=== PATIENT | female | born 1990 | race American Indian/Alaskan Native ===

== ENCOUNTER 2019-06-13 07:31 | Emergency (ER) | payer BC, OTHER ==
--- NOTE | 2019-06-13 08:02 | EDM.PDOC ---
<Kiera Roy - Last Filed: 06/13/19 09:08> ED HPI GENERAL MEDICAL PROBLEM - General Chief Complaint: General Stated Complaint: FEVER, CANT SLEEP Time Seen by Provider: 06/13/19 07:53 Source of Information: Reports: Patient History Limitations: Reports: No Limitations - History of Present Illness INITIAL COMMENTS - FREE TEXT/NARRATIVE: Patient presents to the ED by private vehicle with concerns of sweating, body aches, and poor sleep. The patient states that her symptoms began approximately 2 days ago. She has not recorded a temp but feels warm. She reports participating in a [employer] over the weekend with a large crowd, she is otherwise unaware of any sick contacts. She also admits to sore throat, mild non -productive cough, sinus tenderness, sinus headaches, and nausea. The patient reports that she is currently on her menstrual period. Her last bowel movement was on Wednesday and it was loose. She denies abdominal pain, vomiting, productive cough, blood in the urine, painful urination, flank tenderness. Onset Date: 06/11/19 Duration: Constant Location: Reports: Face Severity: Moderate Improves with: Reports: None Worsens with: Reports: None Context: Reports: Sick Contact (potential, participated in [employer] over weekend) - Related Data Allergies Allergy/AdvReac Type Severity Reaction Status Date / Time No Known Allergies Allergy Verified 06/13/19 07:38 Home Meds: Home Meds Doxycycline Hyclate 100 mg PO DAILY 06/13/19 [History] ED ROS GENERAL - Review of Systems Review Of Systems: See Below Constitutional: Reports: Night Sweats Respiratory: Reports: Cough. Denies: Shortness of Breath, Wheezing, Sputum Cardiovascular: Denies: Chest Pain Endocrine: Reports: Fatigue GI/Abdominal: Reports: Constipation, Nausea. Denies: Abdominal Pain, Diarrhea, Hematemesis, Vomiting : Denies: Dysuria, Flank Pain, Hematuria Musculoskeletal: Reports: Muscle Pain Skin: Denies: Rash ED EXAM, GENERAL - Physical Exam Exam: See Below General Appearance: Alert, No Apparent Distress Eye Exam: Bilateral Eye: PERRL Ears: Normal External Exam, Normal Canal, Hearing Grossly Normal, Normal TMs Nose: Normal Inspection, Normal Mucosa Throat/Mouth: No Airway Compromise, Inflammation (oropharyngeal erythema without tonsillar exudates) Neck: Lymphadenopathy (L), Lymphadenopathy (R) Respiratory/Chest: No Respiratory Distress, Lungs Clear, Normal Breath Sounds Cardiovascular: Normal Peripheral Pulses, Regular Rate, Rhythm, No Murmur GI/Abdominal: Soft, Non-Tender, No Distention Neurological: Alert, Oriented Skin Exam: Warm, Dry, Intact Course - Vital Signs Last Recorded V/S: Last Vital Signs Temp 98.5 F 06/13/19 07:36 Pulse 78 06/13/19 07:36 Resp 18 06/13/19 07:36 BP 138/88 06/13/19 07:36 Pulse Ox 99 06/13/19 07:36 - Orders/Labs/Meds Orders: Active Orders 24 hr Category Date Time Status CULTURE STREP A CONFIRMATION [] Stat Lab 06/13/19 08:03 Results STREP SCRN A RAPID W CULT CONF [] Stat Lab 06/13/19 08:03 Results Strep screen: negative Rapid influenza: negative Labs: Laboratory Tests 06/13/19 06/13/19 Range/Units 08:10 08:10 WBC 4.9 L (5.0-10.0) 10^3/uL RBC 4.17 L (4.2-5.4) 10^6/uL Hgb 12.9 (12.0-16.0) g/dL Hct 39.0 (37.0-47.0) % MCV 93.5 (80-100) fL MCH 30.9 (27.0-34.0) pg MCHC 33.1 (33.0-35.0) g/dL Plt Count 280 (150-450) 10^3/uL Neut % (Auto) 66.5 (42.2-75.2) % Lymph % (Auto) 22.3 (20.5-50.1) % [place] % (Auto) 6.3 (2-8) % Eos % (Auto) 4.3 H (1.0-3.0) % Baso % (Auto) 0.6 (0.0-1.0) % Sodium 139 (136-145) mmol/L Potassium 4.2 (3.5-5.1) mmol/L Chloride 103 (101-111) mmol/L Carbon Dioxide 24 (21-32) mmol/L Anion Gap 16.2 H (7-13) mEq/L BUN 10 (7-18) mg/dL Creatinine 0.75 (0.55-1.02) mg/dL Est Cr Clr Drug Dosing 114.62 mL/min Estimated GFR (MDRD) > 60 BUN/Creatinine Ratio 13.3 (No establ ref range) Glucose 105 H (74-99) mg/dL Calcium 7.7 L (8.5-10.1) mg/dL Total Bilirubin 0.6 (0.2-1.0) mg/dL AST 13 L (15-37) U/L ALT 17 (14-59) U/L Alkaline Phosphatase 92 (46-116) U/L Total Protein 6.9 (6.4-8.2) g/dL Albumin 3.5 (3.4-5.0) g/dL Globulin 3.4 Albumin/Globulin Ratio 1.0 Departure - Departure Time of Disposition: 09:08 Disposition: Home, Self-Care 01 Condition: Good Clinical Impression: Upper respiratory infection Qualifiers: URI type: unspecified viral URI Qualified Code(s): J06.9 - Acute upper respiratory infection, unspecified - Discharge Information *PRESCRIPTION DRUG MONITORING PROGRAM REVIEWED*: Not Applicable *COPY OF PRESCRIPTION DRUG MONITORING REPORT IN PATIENT CARL: Not Applicable Instructions: Viral Respiratory Infection, [id number] Forms: ED Department Discharge Additional Instructions: Benadryl for sleep as needed Tylenol for fever as needed Throat lozenges for comfort as needed Sepsis Event Note - Evaluation Sepsis Screening Result: No Definite Risk - Focused Exam Vital Signs: Vital Signs Temp Pulse Resp BP Pulse Ox 06/13/19 07:36 98.5 F 78 18 138/88 99 Date Exam was Performed: 06/13/19 Time Exam was Performed: 09:08 <Charlie Aviles - Last Filed: 06/13/19 09:18> Course - Re-Assessments/Exams Free Text/Narrative Re-Assessment/Exam: 06/13/19 08:58 I personally performed or re-performed the physical examination and medical decision making. I have verified all student documentation or findings, including history, physical exam and/or medical decision making. Sepsis Event Note - Focused Exam Date Exam was Performed: 06/13/19 Time Exam was Performed: 09:18
[2019-06-13 09:06] LABS: ANION GAP 16.2 mEq/L (7-13); CHLORIDE,CL 103 mmol/L (101-111); SODIUM,NA 139 mmol/L (136-145)
== END 2019-06-13 09:14 | disposition home or self-care (01) ==
LOC: DL.ED 07:31
DX: J06.9 Acute upper respiratory infection, unspecified (principal)
CPT/HCPCS: 36415; 80053; 85025; 87081; 87430; 87804; 99283

== ENCOUNTER 2023-08-24 07:30 | Day surgery (SDC) | payer BC, OTHER ==
[~2023-08-24 07:30] MED LIST: Midazolam 1 MG/ML 2 ML SDV ONE; fentaNYL 100 MCG/2 ML SDV ONE
[2023-08-24] MEDS ORDERED: fentaNYL 100 MCG/2 ML SDV IV ONE (07:31)
[2023-08-24] MEDS ORDERED: Midazolam 1 MG/ML 2 ML SDV IV ONE (07:31)
[2023-08-24] MEDS: Dextrose 5%-0.45% NaCl 1,000 ML IV SCH (08:01)
[2023-08-24] MEDS: fentaNYL 100 MCG/2 ML SDV IV ONE ×2 (08:27→08:28)
[2023-08-24] MEDS: Midazolam 1 MG/ML 2 ML SDV IV ONE ×2 (08:28→08:29)
== END 2023-08-24 10:00 | disposition home or self-care (01) ==
LOC: DL.ENDO 07:30
PROVIDERS: ATTEND Internal Medicine Gastroenterology
DX: I78.1 Nevus, non-neoplastic (principal); K31.89 Other diseases of stomach and duodenum; K21.00 Gastro-esophageal reflux disease with esophagitis, without bleeding; D50.9 Iron deficiency anemia, unspecified; K44.9 Diaphragmatic hernia without obstruction or gangrene; E66.09 Other obesity due to excess calories; Z68.34 Body mass index [BMI] 34.0-34.9, adult
CPT/HCPCS: 87077; J2250; J3010; J7042